=== PATIENT | male | born 1970 | race African-American/Black ===

== ENCOUNTER 2020-01-19 08:47 | Emergency (ER) | payer OTHER ==
[~2020-01-19] VITALS: Ht 182.9 cm; Wt 147.4 kg
--- NOTE | ~2020-01-19 | EMS ---
[address] [address] EMS Patient Care Report Name: JAYY STALEY Room #: PRE ER M.R.#: [id number] Admission: Attend Phys: Discharge: Date of : 74 Report #: [id number] THIS REPORT FOR: //name// Report Transmitted: 01/19/2020 08:35 EMS Care Summary [place], [place]/[facility] Incident [id number] @ 01/19/2020 08:15 Incident Location [address] [place] [address] Patient JAYY STALEY Male, 49 Years 1970 Patient Address [address] [place] [address] Patient History Morbid Obesity, Patient Allergies No known allergies, Patient Medications Cyclobenzaprine, Chief Complaint back pain Disposition Transported No Lights/[place] [facility] Reason Sick Person Transported To [facility] Narrative ems met pt and family on scene. pt found sitting upright in bed and alert. pt a&ox4 gcs 15 and presented in mild discomfort. pt complained of non traumatic lower back pain x2 weeks secondary from a herniated disc. pt stated he has been seen multiple times at [facility] er and has followed up with a specialist. pt stated [address] [address] EMS Patient Care Report Name: JAYY STALEY Room #: PRE DIVYA Barnes#: [id number] Admission: Attend Phys: Discharge: Date of : 74 Report #: [id number] the pain is keeping him immobile. pt requested to be transported to [facility]. pt wore a facemask. pt was moved from house via stairchair. outside pt was transferred onto ems cot. pt was transferred onto ems cot and was secured in a semi fowlers position without incident. pt was loaded into ambulance. pt was transported non emergent. transport was uneventful and pt rested on ems cot. pt care was transferred to appropriate staff and ems goes back in service. pt thanked ems. pts phone and supervisor customer services were left with pt. Initial Vitals @08:30P: 116,R: 20,BP: 100/60,Pain: 2/10,GCS: 15,SpO2: 98,Revised Trauma: 12, @08:42P: 110,R: 20,BP: 104/60,GCS: 15,SpO2: 98,Revised Trauma: 12, Assessments @08:37MENTAL:No Abnormalities,SKIN:No Abnormalities,HEENT:Head/Face: No Abnormalities,Eyes: No Abnormalities,Neck/Airway: No Abnormalities,LUNG SOUNDS:General: No Abnormalities,Left Upper: No Abnormalities,Right Upper: No Abnormalities,Left Lower: No Abnormalities,Right Lower: No Abnormalities,ABDOMEN:General: No Abnormalities,Left Upper: No Abnormalities,Right Upper: No Abnormalities,Left Lower: No Abnormalities,Right Lower: No Abnormalities,PELVIS//GI:No Abnormalities,EXTREMITIES:Left Arm: No Abnormalities,Right Arm: No Abnormalities,Left Leg: No Abnormalities,Right Leg: No Abnormalities,PULSE:NEURO:No Abnormalities,@08:37MENTAL:No Abnormalities,SKIN:No Abnormalities,HEENT:Head/Face: No Abnormalities,Eyes: No Abnormalities,Neck/Airway: No Abnormalities,LUNG SOUNDS:General: No Abnormalities,Left Upper: No Abnormalities,Right Upper: No Abnormalities,Left Lower: No Abnormalities,Right Lower: No Abnormalities,ABDOMEN:General: No Abnormalities,Left Upper: No Abnormalities,Right Upper: No Abnormalities,Left Lower: No Abnormalities,Right Lower: No Abnormalities,PELVIS//GI:No Abnormalities,EXTREMITIES:Left Arm: No Abnormalities,Right Arm: No Abnormalities,Left Leg: No Abnormalities,Right Leg: No Abnormalities,PULSE:NEURO:No Abnormalities, Impression Back Pain Procedures @08:23ALS AssessmentResponse: UnchangedSucceeded Timeline 08:14,Call Received 08:14,Dispatch Notified 08:15,Dispatched 08:17,En Route 08:22,On Scene 08:23,At Patient 08:23,ALS Assessment,Response: UnchangedSucceeded, [facility] [address] [place] [address] EMS Patient Care Report Name: JAYY STALEY Room #: PRE M.R.#: [id number] Admission: Attend Phys: Discharge: Date of : 74 Report #: [id number] 08:30,BP: 100/60 M,PULSE: 116,RR: 20 R,SPO2: 98 Ox,ETCO2: ,BG: ,PAIN: 2,GCS: 15, 08:32,Depart Scene 08:42,BP: 104/60 M,PULSE: 110,RR: 20 R,SPO2: 98 Ox,ETCO2: ,BG: ,PAIN: ,GCS: 15, 08:44,At Destination 08:54,Call Closed Disclaimer v1.1 Copyright 2020 [employer] This EMS Care Summary contains data elements from the applicable legal record (which may be displayed differently). It is designed to provide pertinent information for the following purposes: continuity of care, clinical quality, and state data reporting. The complete legal record is available to ED staff and administrators of the receiving hospital in [employer] Patient Tracker. All data is provided "as is."
[2020-01-19 08:54] VITALS: BP 141/113
[2020-01-19 09:32] LABS: HEMATOCRIT 52.3 % (42.0-52.0); HEMOGLOBIN 17.1 gm/dL (14.0-18.0); MCH 30.6 pg (26.0-34.0); MCHC 32.6 g/dL (28.0-37.0); MCV 93.8 fL (80.0-100.0); PLATELET COUNT 393 thou/uL (150-400); RBC 5.58 mil/uL (4.50-6.00); RDW 13.1 % (10.5-14.5); WBC 22.8 thou/uL (4.0-11.0)
[2020-01-19 09:54] LABS: CALCIUM 11.2 mg/dL (8.5-10.1); CREATININE 3.2 mg/dL (0.7-1.3); DIRECT BILIRUBIN 0.6 mg/dL (<0.1-0.2); TOTAL BILIRUBIN 0.9 mg/dL (0.2-1.0); TOTAL PROTEIN 8.7 g/dL (6.4-8.2)
[2020-01-19 09:59] LABS: ABSOLUTE NEUTROPHILS 16.6 thou/uL (1.4-8.2); METAMYELOCYTES 2 %; PLATELET ESTIMATE NORMAL
[2020-01-19 10:11] LABS: BE(vivo) -11.4 mmol/L (-2 to +3); HCO3 11.3 mmol/L (22.0-26.0); PO2 91.3 mmHg (80.0-100.0); pH 7.345 (7.360-7.450); sO2 96.8 % (92.0-98.0)
[2020-01-19 10:12] LABS: PCO2 21.1 mmHg (35.0-45.0)
[2020-01-19 10:17] LABS: POTASSIUM 5.8 mmol/L (3.5-5.1)
--- NOTE | 2020-01-19 12:48 | NUR ---
ATTEMPTED TO CALL WHO ANSWERED AND TELLED INTO PHONE "NO MA'AM" AND HUNG UP. ATTEMPTED TO CALL AGAIN TO UPDATE ON STATUS AND WENT TO VOICE MAIL. VM LEFT FOR TO CALL BACK FOR UPDATE. DR WHITTAKER STATED HE WILL ALSO CALL .
--- NOTE | 2020-01-19 13:05 | NUR ---
CALLED BACK AND STATED SHE WORKS REMOTELY FROM HOME AND IS UNABLE TO ANSWER CALLS AND DID NOT MEAN TO HANG UP ON THIS NURSE BUT WAS ON ANOTHER LINE. INFORMED OF PT STATUS.
[2020-01-19 13:08] LABS: URINE BILIRUBIN NEGATIVE (Negative); URINE BLOOD 3+ (Negative); URINE COLOR YELLOW; URINE GLUCOSE-RANDOM* 3+ (Negative); URINE KETONES NEGATIVE (Negative); URINE LEUKOCYTES-REFLEX NEGATIVE (Negative); URINE NITRITE-REFLEX NEGATIVE (Negative); URINE PROTEIN (DIPSTICK) TRACE (Negative); URINE SPECIFIC GRAVITY 1.015 (1.005-1.035)
[2020-01-19 13:10] LABS: CHOLESTEROL 96 mg/dL (<200); HDL CHOLESTEROL 18 mg/dL (>40); LDL CHOLESTEROL 53 mg/dL (<100); TC:HDL 5.3 Ratio (Not establshd); TRIGLYCERIDE 127 mg/dL (<150); VLDL 25 mg/dL (<40)
[2020-01-19 13:13] LABS: URINE CLARITY SL HAZY
[2020-01-19 13:13] LABS: FOLIC ACID 13.5 ng/mL (8.6-58.9)
[2020-01-19 13:19] LABS: CASTS None Seen /LPF (None Seen); CRYSTALS None Seen /LPF (None Seen); SQUAMOUS None Seen /LPF (0-3); URINE RBC 3-10 Few /HPF (0-2); URINE WBC-REFLEX 0-5 Rare /HPF (0-5)
[2020-01-19 13:20] LABS: ALBUMIN 1.8 g/dL (3.4-5.0); CALCIUM 9.8 mg/dL (8.5-10.1); CREATININE 2.8 mg/dL (0.7-1.3); POTASSIUM 5.6 mmol/L (3.5-5.1)
[2020-01-19 13:23] LABS: AMP/METHAMP Negative (Negative); BARBITURATES Negative (Negative); BENZODIAZEPINES Negative (Negative); COCAINE Negative (Negative); METHADONE Negative (Negative); OPIATES Negative (Negative); PCP Negative (Negative)
--- NOTE | 2020-01-19 15:00 | NUR ---
VAT CONSULTED FOR A CL FOR THIS CONFUSED SEPTIC PT IN THE ER. LINE IS MEDICALLY NECESSARY. A 5FRTL PLACED IN RT IJ. TIP AT THE CAJ. PLEASE SEE NI FOR DETAILS
[2020-01-19 16:21] VITALS: BP 122/75
[2020-01-20 02:06] LABS: GLYCOHEMOGLOBIN (HGB A1C) 11.7 % (4.8-5.6)
--- NOTE | 2020-01-20 17:12 | HC ---
[facility] [place] [address] CONSULTATION Name: JAYY STALEY Room #: DEP Cameron#: [id number] Admission: 01/19/20 Attend Phys: Discharge: 01/19/20 Date of : 74 Report #: [id number] THIS REPORT FOR: cc: FAM - No family physician/PCP FAM - No family physician/PCP Darwin Anderson MD ~ DATE OF SERVICE: 01/19/2020 CHIEF COMPLAINT: Possible necrotizing soft tissue infection. HISTORY OF PRESENT ILLNESS: This is a 49-year-old male patient who I have been asked to see in the Emergency Department for a possible necrotizing infection. The patient presented with some shortness of breath. He called 911, was brought by ambulance. He states he just does not feel well and is weak. He was evaluated in the Emergency Department, had a CAT scan performed and was felt to have been septic and there was possible necrotizing process noted on the CT of the abdomen and pelvis. I have been asked to be involved with regard to a possible necrotizing infection. The patient notes that he feels bad, but thinks it is because he has been drinking and smoking quite a bit. Over the last several days, possibly weeks, admits to "smoking all kinds of stuff." He is a little bit confused and it is hard to get a clear history from him. PAST MEDICAL HISTORY: Negative for known significant medical history. He denies a history of known diabetes, hypertension, hyperlipidemia or chronic other problems. ALLERGIES: None. FAMILY HISTORY: Unknown. SOCIAL HISTORY: Positive for alcohol and tobacco and possibly marijuana and possible other drug use. REVIEW OF SYSTEMS: CONSTITUTIONAL: The patient feels generally weak. Denies focal weakness, numbness, tingling. The patient denies fever or chills. ENT: The patient denies earache, nasal drainage, sore throat. CARDIOVASCULAR: The patient denies chest pain or palpitations or diaphoresis. PULMONARY: The patient does complain of dyspnea with exertion and shortness of breath. GASTROINTESTINAL: The patient complains of some generalized abdominal discomfort, but denies any specific pain. Denies nausea or vomiting presently. ORTHOPEDIC: The patient denies pain or swelling of the extremities. Other systems are either unobtainable or negative. [facility] [address] [place] [address] CONSULTATION Name: JAYY STALEY Room #: DEP [facility]#: [id number] Admission: 01/19/20 Attend Phys: Discharge: 01/19/20 Date of : 74 Report #: [id number] PHYSICAL EXAMINATION: VITAL SIGNS: Include blood pressure 141/113, temperature 37, pulse 140, respiratory rate of 30, pulse oximetry is 97%. GENERAL: This is a somewhat chronically ill-appearing male patient that appears to be in ivot-cq-doedebyu discomfort. HEENT: Examination of the head is normocephalic. Nose and throat are clear. NECK: Supple. LUNGS: Clear. CARDIAC: Tachycardic without obvious murmur. ABDOMEN: Obese, soft. There is some tenderness along the right flank region or up into the right chest wall with some mild crepitus to palpation. No redness, no specific point tenderness. EXTREMITIES: Without clubbing or cyanosis. Trace edema noted. LABORATORY DATA: Includes arterial blood gas, pH 7.34, pCO2 of 21, pO2 of 91.3. Sodium 118, potassium 5.6, chloride 81, CO2 of 16, BUN 95, creatinine 2.8, glucose is 765. Albumin is 1.8, phosphorus is 6.6. Lactic acid is 10.6. White blood cell count is 22.8 with a hemoglobin of 17.1. CT of the abdomen and pelvis demonstrates no acute intra-abdominal process, extensive gas in the rectus minus muscle bilaterally with extension into the right lateral abdominal wall along the rectus oblique muscles and into the gluteal fat. The gas along the abdominal wall extends from the upper margin of the CT inferior to the level of the iliac crest. No loculated abscess or well-defined abscess was present in this area. Findings may represent necrotizing fasciitis. CLINICAL IMPRESSION: 1. Severe sepsis. 2. Diabetic ketoacidosis. 3. Possible necrotizing soft tissue infection of the abdominal and chest wall. RECOMMENDATIONS: At this point in time, the patient is still being seen in the Emergency Department, it would be more than likely he will need a surgical intervention. We would consider the possibility of adjunctive hyperbaric oxygen therapy as well as Infectious Disease consultation with appropriate antibiotic therapy as well as management of his DKA. Based on the severity of his illness and the possibility of needing surgical intervention involving the spine, discussion is being entertained with him possibly transferring to another facility with higher level of care available. We will certainly stand by and be available. There is no specific wound care required at this time, although once again the consideration of hyperbaric oxygen therapy would be appropriate. [address] [address] CONSULTATION Name: JAYY STALEY Room #: DEP DIVYA Barnes#: [id number] Admission: 01/19/20 Attend Phys: Discharge: 01/19/20 Date of : 74 Report #: [id number] I appreciate being asked to see the patient in consultation. <ELECTRONICALLY SIGNED> By: Darwin Anderson MD 01/20/20 1712 [id number] [id number] Darwin Anderson MD /nt
--- NOTE | 2020-01-20 19:34 | NUR ---
Called [facility] ICU and notified Tamia of positive Blood Culture results.
== END 2020-01-19 16:21 | disposition short-term general hospital (02) ==
LOC: ER 08:47 → EROBS 12:04 → ER 12:04
PROVIDERS: Emergency Medicine; Nurse Practitioner
DX: A41.9 Sepsis, unspecified organism (principal); R65.20 Severe sepsis without septic shock; N17.9 Acute kidney failure, unspecified; E11.10 Type 2 diabetes mellitus with ketoacidosis without coma; E87.1 Hypo-osmolality and hyponatremia; G06.2 Extradural and subdural abscess, unspecified; E87.2 Acidosis; E66.01 Morbid (severe) obesity due to excess calories; M72.6 Necrotizing fasciitis; R06.00 Dyspnea, unspecified; Z20.828 Contact with and (suspected) exposure to other viral communicable diseases; Z68.41 Body mass index [BMI] 40.0-44.9, adult